=== PATIENT | female | born 1965 | race Caucasian/White ===

== ENCOUNTER 2018-02-10 13:24 | Emergency (ER) | payer SELFPAY ==
[~2018-02-10] VITALS: Ht 165.1 cm; Wt 68.0 kg
[2018-02-10 14:03] VITALS: BP 133/66; PULSE 95; RESP 18; TEMP 98.9; O2SAT 99
[2018-02-10] MEDS ORDERED: predniSONE 20 MG TAB PO ONE (14:15)
--- NOTE | 2018-02-10 14:38 | PD ---
HPI Chief Complaint: Back/ Neck Pain or Injury Time Seen by Provider: 14:10 Travel History International Travel<30 days: No Contact w/Intl Traveler<30days: No Traveled to known affect area: No History of Present Illness HPI 52-year-old female with history of COPD presents emergency department with several complaints. Patient states she may have hurt her back Wednesday while at work lifting boxes. Patient also states she has felt unwell over the past 4 days with reports of fever and chills, cough, and increased urine frequency. She denies vaginal discharge or dysuria. She does feel nauseous with decreased appetite with one episode of vomiting today. Patient denies headache, ear pain, or upper respiratory symptoms. Patient does use an inhaler regularly, but states he has not used it this past week that she is "trying to save it". Patient states episode of shaking chills last evening. Pain in the lower back is 8 out of 10. She denies radicular pain in the lower extremities. She has no known drug allergies. [facility] Past Medical History Medical History: Denies Significant Hx ?: Not Past Surgical History Other Surgery: Yes (NECK SURGERY 3 YEARS AGO ) Social History Alcohol Use: Yes Tobacco Use: Yes (1/2 PACK A DAY ) Substance Use: No Allergies-Medications (Allergen,Severity, Reaction): Coded Allergies: No Known Allergies (Verified Allergy, Unknown, 02/10/18) Review of Systems Except as stated in HPI: all other systems reviewed are Neg General / Constitutional: Positive: Fever, Chills (Report) Eyes: No: Visual changes HENT: No: Headaches Cardiovascular: No: Chest Pain or Discomfort Respiratory: No: Shortness of Breath Gastrointestinal: Positive: Nausea, Vomiting, Loss of Appetite, No: Diarrhea ( 1 today), Abdominal Pain Genitourinary: Positive: Urgency, Frequency, Flank Pain, No: Dysuria, Pelvic Pain, Discharge Musculoskeletal: Positive: Myalgias, Pain (See history of present illness), No : Arthralgias, Limited ROM Skin: No Rash Neurologic: No: Weakness Psychiatric: No: Depression Endocrine: No: Polydipsia Hematologic/Lymphatic: No: Easy Bruising Physical Exam Narrative GENERAL: Patient does not appear well that does not appear septic SKIN: Warm and dry. HEAD: Atraumatic. Normocephalic. EYES: Pupils equal and round. No scleral icterus. No injection or drainage. ENT: No nasal bleeding or discharge. Mucous membranes pink and moist. NECK: Trachea midline. Supple and nontender CARDIOVASCULAR: Regular rate and rhythm. RESPIRATORY: No accessory muscle use. Diffuse wheezes and rhonchi throughout to auscultation. Breath sounds equal bilaterally. GASTROINTESTINAL: Abdomen soft, non-tender, nondistended. Hepatic and splenic margins not palpable. No CVA tenderness. MUSCULOSKELETAL: Extremities without clubbing, cyanosis, or edema. No obvious deformities. NEUROLOGICAL: Awake and alert. No obvious cranial nerve deficits. Motor grossly within normal limits. Five out of 5 muscle strength in the arms and legs. Normal speech. PSYCHIATRIC: Appropriate mood and affect; insight and judgment normal. Data Data Last Documented VS Vital Signs Date Time Temp Pulse Resp B/P (MAP) Pulse Ox O2 Delivery O2 Flow Rate FiO2 02/10/18 14:03 98.9 95 18 133/66 (88) 99 Orders Orders Urinalysis - C+S If Indicated (02/10/18 14:11) Albuterol-Ipratropium Neb (Duoneb Neb) (02/10/18 14:15) Chest, Pa & Lat (02/10/18 14:14) Prednisone (Deltasone) (02/10/18 14:15) Urine Culture (02/10/18 15:35) Ceftriaxone Inj (Rocephin Inj) (02/10/18 16:00) Lidocaine Pf 1% Inj (Xylocaine-Mpf 1% In (02/10/18 16:00) Labs Laboratory Tests Test 02/10/18 15:35 Urine Color YELLOW Urine Turbidity HAZY Urine pH 6.0 Urine Specific [place] 1.011 Urine Protein 100 mg/dL Urine Glucose (UA) NEG mg/dL Urine Ketones NEG mg/dL Urine Occult Blood MOD Urine Nitrite POS Urine Bilirubin NEG Urine Urobilinogen LESS THAN 2.0 MG/DL Urine Leukocyte Esterase LARGE Urine RBC 5 /hpf Urine WBC 137 /hpf Urine Squamous Epithelial Cells 1 /hpf Urine Amorphous Sediment RARE Urine Bacteria MOD /hpf Urine Mucus FEW /lpf Microscopic Urinalysis Comment CULTURE INDICATED MDM Medical Decision Making Medical Screen Exam Complete: Yes Emergency Medical Condition: Yes Differential Diagnosis COPD exacerbation. Pneumonia. Urinary tract infection. Lumbar strain. Lumbago. Pyelonephritis. Narrative Course Patient is currently afebrile and vital signs are stable. Urinalysis, and chest x-ray PA and lateral are ordered. Patient is given 60 mg prednisone p.o. as well as DuoNeb 3. Chest x-ray shows no acute pneumonia per radiologist. Urinalysis shows significant findings suggestive of urinary tract infection and culture is placed. Patient is given Rocephin 1 g IM. Patient will be continued on Bactrim DS twice daily 10 days. Patient also continued on prednisone 20 mg twice daily 7 days. Patient is given albuterol metered-dose inhaler 2 puffs every 4-6 hours as needed cough and wheeze. Work note is given. Patient is encouraged to quit smoking as soon as possible. Diagnosis Primary Impression: UTI (urinary tract infection) Qualified Codes: N30.01 - Acute cystitis with hematuria Additional Impression: Acute wheezy bronchitis Patient Instructions: General Instructions, How to Stop Smoking (DC), How to Use a Metered-Dose Inhaler (DC), Prednisone (By mouth) Departure Forms: Work Release Enter return to work date: Feb 14, 2018 Additional Instructions: Patient is given 60 mg prednisone p.o. as well as DuoNeb 3. Chest x-ray shows no acute pneumonia per radiologist. Urinalysis shows significant findings suggestive of urinary tract infection and culture is placed. Patient is given Rocephin 1 g IM. Patient will be continued on Bactrim DS twice daily 10 days. Patient also continued on prednisone 20 mg twice daily 7 days. Patient is given albuterol metered-dose inhaler 2 puffs every 4-6 hours as needed cough and wheeze. Work note is given. Patient is encouraged to quit smoking as soon as possible. Med/Other Pt SpecificInfo: Prescription(s) given Scripts Albuterol 18 GM Inh (Ventolin Hfa 18 GM Inh) 90 Mcg/Act Aer 2 PUFF INH Q4-6H Y for SHORTNESS OF BREATH, #1 INHALER 0 Refills Prov: Zaire Marshall MD 02/10/18 Prednisone (Prednisone) 20 Mg Tab 20 MG PO BID for 7 Days, #14 TAB 0 Refills Prov: Zaire Marshall MD 02/10/18 Sulfamethoxazole-Trimethoprim (Bactrim DS) 800-160 Mg Tab 1 TAB PO BID for Infection, #20 TAB 0 Refills Prov: Zaire Marshall MD 02/10/18 Disposition: 01 DISCHARGE HOME Condition: Stable Heriberto Snell Feb 10, 2018 14:38
--- NOTE | 2018-02-10 14:44 | RADRPT ---
EXAM DATE/TIME: 02/10/2018 14:30 [place] COMPARISON: No previous studies available for comparison. INDICATIONS : Pt states lower back pain for one week. MEDICAL HISTORY : None. Smoker. COPD. SURGICAL HISTORY : None. ENCOUNTER: Initial ACUITY: 1 week PAIN SCORE: 5/10 LOCATION: Bilateral lower back FINDINGS: PA and lateral views of the chest demonstrate a normal-sized cardiac silhouette. There is no effusion , consolidation, or pneumothorax. The bones and soft tissues demonstrate no acute abnormality. CONCLUSION: No acute cardiopulmonary abnormality is identified. Keenan Solano MD on February 10, 2018 at 14:40 Board Certified Radiologist. This report was verified electronically.
[2018-02-10] MEDS: RESP: ALBUTEROL 2.5 MG/IPRATROPIUM 0.5 MG NEB (SCH) INH ×2 (14:45→14:46)
[2018-02-10 15:52] LABS: AMORPHOUS SEDIMENT, URINE RARE; BACTERIA, URINE MOD /hpf; BILIRUBIN, URINE NEG (NEG); BLOOD, URINE MOD (NEG); GLUCOSE,URINE NEG (NEG); KETONE, URINE NEG (NEG); MUCUS URINE FEW /lpf (OCC); NITRITE,URINE POS (NEG); SQUAMOUS EPITHELIAL CELL URINE 1 /hpf (0-5); URINE COLOR YELLOW (YELLW/STRAW); URINE LEUKOCYTE ESTERASE LARGE (NEG)
[2018-02-10] MEDS ORDERED: PRED20 PO ×2 (15:58→16:12)
[2018-02-10] MEDS ORDERED: VENTAER INH ×2 (15:58→16:12)
[2018-02-10] MEDS ORDERED: BACT800T5 PO ×2 (15:58→16:12)
[2018-02-10] MEDS ORDERED: LIDOCAINE HCL 1% PF 30 ML VIAL XX ONE (16:00)
== END 2018-02-10 16:22 | disposition home or self-care (01) ==
LOC: NEPK 13:24
DX: N30.01 Acute cystitis with hematuria (principal); J44.0 Chronic obstructive pulmonary disease with (acute) lower respiratory infection; J20.9 Acute bronchitis, unspecified; M54.5 Low back pain; F17.200 Nicotine dependence, unspecified, uncomplicated
CPT/HCPCS: 71046; 81001; 87077; 87086; 87186; 94640; 94664; 96372; 99284; J0696; J7512